=== PATIENT | female | born 1995 | race African-American/Black ===

== ENCOUNTER 2017-08-27 14:42 | Emergency (ER) | payer MEDICAID ==
[~2017-08-27] VITALS: Ht 149.9 cm; Wt 80.0 kg
[2017-08-27] MEDS ORDERED: ONDANSETRON 2MG/ML, 2ML IVPush ONE (15:30)
[2017-08-27] MEDS ORDERED: PLEASE ENTER ALLERGIES MC SCH ×2 (15:30)
[2017-08-27] MEDS ORDERED: SODIUM CHLORIDE FLUSH 10ML SYR IVF ONE (15:30)
[2017-08-27] MEDS ORDERED: SODIUM CHLORIDE 0.9% 1,000ML IVBOLUS ONE (15:30)
[2017-08-27 16:13] LABS: HEMATOCRIT 38.3 % (34.6-47.8); HEMOGLOBIN 12.5 g/dL (11.7-16.4); WHITE BLOOD COUNT 6.8 x10^3/uL (4.5-13.2)
[2017-08-27 16:23] LABS: ASPARTATE AMINO TRANSFERASE 9 U/L (15-37); BLOOD UREA NITROGEN 8 mg/dL (7-18)
[2017-08-27 17:44] VITALS: BP 119/50
== END 2017-08-27 17:50 | disposition home or self-care (01) ==
LOC: ED 17:00
DX: O26.891 Other specified pregnancy related conditions, first trimester (principal); O99.511 Diseases of the respiratory system complicating pregnancy, first trimester; O21.9 Vomiting of pregnancy, unspecified; R10.32 Left lower quadrant pain; Z3A.01 Less than 8 weeks gestation of pregnancy
CPT/HCPCS: 36415; 76801; 80053; 81001; 83605; 85025; 87086; 96360; 99285; J7030